=== PATIENT | female | born 1955 | race Caucasian/White ===

== ENCOUNTER → 2016-06-21 | Outpatient (CLI) | payer BC ==
[~2016-06-21] MED LIST: ACETAMINOPHEN PO; AMLODIPINE BESYL5 MG PO; ANTIVERT PO; ASPIRIN EC81 M1 PO; ATIVAN PO; CELEXA20 MG PO; IBUPROFEN800 MG PO; PRINIVIL40 MG PO; ULTRAM PO
--- NOTE | ~2016-06-21 | HM ---
Unit #: [id number] #: [id number] Patient: CHAZ MONTANA [id number] [facility]. [place], [place] [address] [id number] O MR#: [id number] NAME: CHAZ MONTANA. : 1955 SEX: F STUDY DATE/TIME: [place]: [facility] [place]: STUDY DESCRIPTION: Holter Monitor Attending Physician: Rachna Arias M.D. Primary Care Physician: Rachna Arias M.D. CARDIOLOGY REPORT EXAM Holter monitor INDICATION Palpitations. SUMMARY Patient was monitored for 24 hours. A total of 112,705 QRS complexes were analyzed. There were no pauses. The longest R-R interval of 1.6 seconds was incorrectly identified and there is actually a PVC in the max R-R interval. Average heart rate was 79 beats per minute, minimum heart rate 59 beats per minute at 2:51 a.m., maximum heart rate 130 beats per minute at approximately 2:00 p.m. Supraventricular ectopy: 53 isolated beats, with two runs totalling six beats. The longest and fastest run, 176 beats per minute at approximately 2:00 p.m. Ventricular ectopy: 57 isolated beats with no runs. SYMPTOMS: None. PATIENT ACTIVATED EVENTS: None. IMPRESSION 1. Holter monitor shows no significant dysrhythmias. 2. The SVT run is clinically not significant. COMMENT: Fewer than normal ventricular and supraventricular ectopic beats are noted. Dictated by... Marco Knox/mari TD: 06/23/2016 20:08 JOB #: [id number] Unit #: [id number] #: [id number] Patient: CHAZ MONTANA CARDIOLOGY REPORT Page 1 of 1 X Carter Ac MD HOLTER MONITOR REPORT
== END | disposition home or self-care (01) ==
LOC: CEKG 10:34
DX: I25.10 Atherosclerotic heart disease of native coronary artery without angina pectoris (principal); R00.2 Palpitations
CPT/HCPCS: 93225; 93226